=== PATIENT | female | born 1985 | race Caucasian/White ===

== ENCOUNTER 2016-10-27 21:04 | Inpatient (IN) ==
[2016-10-27] MEDS ORDERED: PEPCID PO PRN (22:04)
[2016-10-27] MEDS ORDERED: ZOFRAN IV PRN (22:04)
[2016-10-27] MEDS ORDERED: STADOL IV PRN ×2 (22:04)
[2016-10-27] MEDS ORDERED: AMBIEN PO PRN (22:04)
[2016-10-27] MEDS ORDERED: KEFZOL 1 GM/D5W 1 GM/50 ML IVPB IV PRN (22:04)
[2016-10-27] MEDS ORDERED: PEPCID IV PRN (22:04)
[2016-10-27] MEDS ORDERED: BRETHINE SUBQ PRN (22:04)
[2016-10-27] MEDS ORDERED: TYLENOL PO PRN (22:04)
[2016-10-27] MEDS: LR 1,000 ML IV SCH (22:45)
[2016-10-27] MEDS ORDERED: CYTOTEC PO ONE (23:00)
[2016-10-28 00:23] LABS: URINE SOURCE VOIDED
[2016-10-28 00:23] LABS: MANUAL DIFF NEEDED? NO
[2016-10-28 00:31] LABS: BASO% 0.2 % (0.0-0.8); EOS# 0.19 X1000 (0.0-0.7); EOS% 1.1 % (0.0-10.0); HEMATOCRIT 37.6 % (37.0-47.0); HEMOGLOBIN 13.4 g/dL (12.0-16.0); IMM GRAN# 0.14 X1000 (0.0-0.04); IMM GRAN% 0.8 % (0.0-0.5); LYMPH# 2.11 X1000 (1.2-3.4); LYMPH% 11.7 % (20.5-51.1); MCHC 35.6 g/dL (33-37); MCV 81.4 FL (81-99); MONO# 1.49 X1000 (0.11-0.59); MONO% 8.3 % (1.7-9.3); NEUT% 77.9 % (42.2-75.2); PLT 245 X1000 (130-400); RBC 4.62 XMIL (4.2-5.4)
[2016-10-28 00:37] LABS: BILIRUBIN URINE NEGATIVE (NEGATIVE); BLOOD URINE NEGATIVE (NEGATIVE); CLARITY CLEAR (CLEAR); COLOR YELLOW; GLUCOSE URINE NEGATIVE (NEGATIVE); LEUKOCYTES URINE NEGATIVE (NEGATIVE); NITRITE URINE NEGATIVE (NEGATIVE); PH URINE 6.5; PROTEIN URINE NEGATIVE (NEGATIVE); UROBILINOGEN URINE NORMAL
[2016-10-28] MEDS: STADOL IV PRN ×2 (02:44→05:01)
[2016-10-28] MEDS ORDERED: CYTOTEC PO SCH (03:00)
[2016-10-28] MEDS: LR 1,000 ML IV SCH ×2 (06:26→08:40)
[2016-10-28] MEDS ORDERED: PITOCIN 30 UNITS/LR 30 UNITS/500 ML IV.SOLN IV SCH (07:00)
[2016-10-28] MEDS ORDERED: PEPCID IV ONE (08:15)
[2016-10-28] MEDS ORDERED: SODIUM CHLORIDE 0.9% INJ ONE (08:30)
[2016-10-28] MEDS ORDERED: BICITRA PO ONE (08:30)
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
[2016-10-28] MEDS ORDERED: FENTANYL-BUPIV-NS 2 MCG-0.1% 200 ML EPIDURAL SCH (09:00)
[2016-10-28] MEDS ORDERED: ROBINUL ONE (09:28)
[2016-10-28] MEDS ORDERED: QUELICIN ONE (09:28)
[2016-10-28] MEDS ORDERED: PITOCIN ONE ×2 (09:28→10:09)
[2016-10-28] MEDS ORDERED: DURAMORPH ONE (09:42)
[2016-10-28] MEDS ORDERED: DIPRIVAN 1% ONE (09:42)
[2016-10-28] MEDS ORDERED: ZOFRAN ONE (10:12)
[2016-10-28 10:29] LABS: BLOOD TYPE ARTERIAL; METHB 1.7 % (0.0-1.5); O2(CT) 1.8 mL/dL (15.0-23.0); PCO2(98.6) 71 mmHg (35-45); PO2(98.6) 6 mmHg (60-100); SAMPLE BLOOD; SAO2 7.6 % (95.0-100.0); THB 17.8 g/dL (11.5-17.4); pH(98.6) 7.21 (7.35-7.45)
[2016-10-28 10:35] LABS: DRAW SITE UMBILICAL
[2016-10-28 10:36] LABS: ALLEN TEST NO; MODALITY ROOM AIR
[2016-10-28] MEDS ORDERED: ZOFRAN IV PRN ×2 (11:28)
[2016-10-28] MEDS ORDERED: NARCAN INJ PRN (11:28)
[2016-10-28] MEDS ORDERED: ZOFRAN ODT PO PRN (11:28)
[2016-10-28] MEDS ORDERED: BENADRYL IV PRN (11:28)
[2016-10-28] MEDS ORDERED: M-M-R II VACCINE SUBQ ONE (11:57)
[2016-10-28] MEDS ORDERED: CYTOTEC PO PRN (11:57)
[2016-10-28] MEDS ORDERED: PITOCIN IM PRN (11:57)
[2016-10-28] MEDS ORDERED: PITOCIN 20 UNITS/LR 20 UNITS/1,000 ML IV.SOLN IV ONE (11:57)
[2016-10-28] MEDS ORDERED: HYDROXYZINE PO PRN (11:57)
[2016-10-28] MEDS ORDERED: DEMEROL IM PRN (11:57)
[2016-10-28] MEDS ORDERED: PERCOCET-5 PO PRN (11:57)
[2016-10-28] MEDS ORDERED: BOOSTRIX VACCINE IM ONE (11:57)
[2016-10-28] MEDS ORDERED: PHENERGAN IM PRN (11:57)
[2016-10-28] MEDS ORDERED: MYLICON PO PRN (11:57)
[2016-10-28] MEDS ORDERED: HYDROXYZINE IM PRN (11:57)
[2016-10-28] MEDS ORDERED: DEMEROL PO PRN ×2 (11:57)
[2016-10-28] MEDS ORDERED: DULCOLAX PR PRN (11:57)
--- NOTE | 2016-10-28 12:24 | OPERATIVE NOTE ---
PROCEDURE DATE: PREOPERATIVE DIAGNOSES: 1. [id number], 2, para 0-0-1-0 at 39 weeks and 6 days. 2. Induction of labor for gestational hypertension. 3. Repetitive late decelerations remote from delivery. POSTOPERATIVE DIAGNOSES: 1. [id number], 2, para 0-0-1-0 at 39 weeks and 6 days. 2. Induction of labor for gestational hypertension. 3. Repetitive late decelerations remote from delivery. 4. Questionable small 4 cm uterine window. PROCEDURE: Primary low uterine transverse . SURGEON: Jonelle Santacruz MD AXLE AND FRAME MECHANIC: Patria Mckeon RN ANESTHESIA: Spinal. FINDINGS: Uterus with approximately 4 cm uterine window on the patient's lower left side anteriorly, meconium-stained amniotic fluid. Female in vertex presentation. Weight was 6 pounds, 10 ounces. Apgars 8 at 1 minute, 9 at 5 minutes. Otherwise, normal- appearing uterus, tubes, and ovaries. COMPLICATIONS: None. ESTIMATED BLOOD LOSS: 600 mL. SPECIMENS: Placenta discarded. BLOOD GAS: With a pH of 7.21. DRAINS: 100 mL of clear urine at the end of the case. PROCEDURE FOLLOWS: The patient was taken to the operating room, where she was properly prepped and draped in the normal sterile fashion in the dorsal supine position. Adequate anesthesia was noted and a Pfannenstiel skin incision was made with a scalpel and carried down to the underlying layer of fascia sharply. Fascia was incised in the midline and extended laterally with Werner scissors. Prasad clamps x2 were then used to elevate the superior aspect of the fascial incision. The rectus muscles were dissected off bluntly. Attention was then turned to the inferior aspect of the fascial incision and the rectus muscles were dissected off in a similar manner. Rectus muscles were then digitally in the midline. Peritoneum was entered digitally. The peritoneum was stretched. Bladder blade was inserted and the uterus was inspected. There was noted to be an approximately 4 cm very thin segment on the lower left side. The bladder flap was then created sharply. A low transverse incision was made with a scalpel and extended laterally digitally. Brownish fluid was noted upon amnion rupture. Baby was then delivered from a vertex presentation without any complications. Cord was clamped and cut. Baby was bulb suctioned and handed off to waiting nursery staff. Cord segment was obtained for blood gases and cord blood was obtained. Placenta at this time was then massaged from the uterus. Uterus was exteriorized and cleared of clots and debris. The uterine incision at this time was then closed with a #1 Biosyn in a running, locked fashion. A second layer of the same suture was then used to imbricate over the initial incision. Three interrupted sutures of the same suture was then used for maintenance of hemostasis. Once hemostatic, the uterus was tilted forward. Abdomen was cleared of clots and debris. The uterus was tilted back and returned to the abdomen, inspected for hemostasis again. Gutters were clear. The uterus was noted to be hemostatic and the fundus was firm. The peritoneum at this time was then closed with a 2-0 Polysorb in a running fashion. Rectus muscles were inspected for hemostasis and loosely reapproximated with remaining suture of the Polysorb as well as a single stitch of the remaining Biosyn. Rectus muscles were noted to be hemostatic and the fascia was then closed with a #1 PDS starting from each apex and tying strand to strand just to the right of the midline. Subcutaneous tissue was then copiously irrigated and maintained hemostatic with the Bovie. Three interrupted sutures of 2-0 plain gut was then used to reapproximate the subcutaneous tissue. The skin was closed with a 4-0 Biosyn on a Edy needle. All sponge, lap, and needle counts were correct x3. The patient tolerated the procedure well and she went to recovery room in stable condition. cc: Jonelle Santacruz MD MTDGregory
[2016-10-28] MEDS: TORADOL IV SCH ×2 (13:23→17:27)
[2016-10-28] MEDS: MYLICON PO SCH ×4 (13:24→20:11)
[2016-10-28] MEDS: MORPHINE IV PRN ×3 (14:09→22:32)
[2016-10-28] MEDS: PERICOLACE PO SCH (20:11)
[2016-10-28] MEDS: PITOCIN 10 UNITS/LR 10 UNIT/1,000 ML IV.SOLN IV SCH (20:29)
[2016-10-28] MEDS: AMBIEN PO PRN (22:32)
[2016-10-29] MEDS: TORADOL IV SCH ×2 (00:30→06:03)
[2016-10-29] MEDS: PITOCIN 10 UNITS/LR 10 UNIT/1,000 ML IV.SOLN IV SCH (05:50)
[2016-10-29] MEDS: PERCOCET-10 PO PRN ×5 (06:07→23:10)
[2016-10-29 07:11] LABS: HEMATOCRIT 33.9 % (37.0-47.0); HEMOGLOBIN 11.5 g/dL (12.0-16.0); MCH 27.9 PG (27-31); MCHC 33.9 g/dL (33-37); MCV 82.3 FL (81-99); MPV 11.6 FL (7.4-10.4); RBC 4.12 XMIL (4.2-5.4)
[2016-10-29] MEDS: PRECARE PO SCH (08:50)
[2016-10-29] MEDS: MYLICON PO SCH ×5 (08:50→22:17)
[2016-10-29] MEDS ORDERED: LR 1,000 ML IV SCH (11:25)
--- NOTE | 2016-10-29 12:36 | PROGRESS NOTE ---
DATE: 10/29/2016 SUBJECTIVE: She is postop and day 1. Ms. Duong is sitting up in bed. She does not appear to be in any distress. She complains of incisional pain but has tolerated p.o. and ambulated. She is waiting on a shower at this point, but otherwise she is without complaints. OBJECTIVE: Vital signs: Stable. She is afebrile. General: She is alert and cooperative. She does not appear to be in any distress. Lungs: Clear. Heart: Regular sinus rhythm. Abdomen: Distended. Incision bandage is on. It is dry. Extremities: +2 lower extremity edema. LABORATORY DATA: Hemoglobin and hematocrit . PLAN: Will continue with routine postop and care. cc: MD Jonelle Blankenship MD
[2016-10-29] MEDS: MOTRIN PO PRN ×2 (14:50→23:10)
[2016-10-29] MEDS: PERICOLACE PO SCH ×2 (19:21→22:17)
[2016-10-30] MEDS: AMBIEN PO PRN ×2 (00:56→22:09)
[2016-10-30] MEDS: PERCOCET-10 PO PRN ×6 (03:48→21:43)
[2016-10-30] MEDS: MOTRIN PO PRN ×2 (07:15→15:01)
[2016-10-30] MEDS: PRECARE PO SCH (09:37)
[2016-10-30] MEDS: MYLICON PO SCH ×4 (09:37→20:27)
[2016-10-30] MEDS: PERICOLACE PO SCH (20:27)
[2016-10-31] MEDS: MOTRIN PO PRN (03:02)
[2016-10-31] MEDS: PERCOCET-10 PO PRN ×2 (03:02→09:18)
[2016-10-31 09:04] VITALS: BP 135/80
[2016-10-31] MEDS: MYLICON PO SCH (09:18)
[2016-10-31] MEDS: PRECARE PO SCH (09:18)
--- NOTE | 2016-10-31 15:49 | DISCHARGE SUMMARY ---
ADMISSION DATE: 10/27/2016 DISCHARGE DATE: 10/31/2016 Patient is a 31-year-old, G-2, P-0-0-1-0 with intrauterine at 39 weeks 6 days, who presented for induction of labor secondary to gestational hypertension. During induction, patient with nonreassuring assessment, so subsequently underwent primary abdominal delivery. Please see full operative report for details. Postoperatively, patient was transferred to the floor for routine postoperative care. On postoperative day #1, Cid catheter was discontinued. Patient demonstrated the ability to void. Hematocrit returned at 32.9. On postoperative day #3, patient was tolerating diet, ambulating without difficulty, with normal lochia, and was felt to be stable for discharge home. DISCHARGE DISPOSITION: The patient is discharged home. PRIMARY PROCEDURE: Primary section. FOLLOWUP: Patient to follow up in 1 week for a postoperative visit. cc: MD Jonelle Bennett MD
== END 2016-10-31 12:35 | disposition home or self-care (01) ==
LOC: P.LD 21:04 → P.WC 10-28 12:42
PROVIDERS: ADMIT Obstetrics & Gynecology; ATTEND Obstetrics & Gynecology